=== PATIENT | female | born 1995 | race African-American/Black ===

== ENCOUNTER 2016-04-03 11:22 | Emergency (ER) | payer OTHER ==
[~2016-04-03] VITALS: Ht 170.2 cm; Wt 89.5 kg
[2016-04-03 11:25] VITALS: TEMP 36.4; Ht 170.2 cm; Wt 89.5 kg
[2016-04-03] MEDS ORDERED: SODIUM CHLORIDE 0.9% 1000ML 1,000 ML IV STA (12:23)
[2016-04-03] MEDS ORDERED: MoRPHine SULFATE 4 MG/ML 1 ML CARP\\VIAL IV STA ×2 (12:23→13:34)
[2016-04-03] MEDS ORDERED: ONDANSETRON INJ 2 MG/ML 2 ML VIAL IV STA (12:23)
[2016-04-03 12:49] LABS: BASO % 0.1 %; BASO ABS # 0.02 K/uL (0-0.2); COMPLETE YES; EOS % 0.1 %; HEMATOCRIT 37.6 % (37-47); IG% 0.2 %; LYMPH % 11.1 %; LYMPH ABS # 1.67 K/uL (1.2-3.4); MEAN CELL VOLUME 80.2 fL (80-100); MEAN CORPUSCULAR HEMOGLOBIN 26.7 pg (25-34); MEAN CORPUSCULAR HGB CONC 33.2 g/dl (32-36); MEAN PLATELET VOLUME 9.7 fL (7.4-10.4); MONO % 8.3 %; NEUT % 80.2 %; PLATELET COUNT 346 K/uL (130-400); RED BLOOD COUNT 4.69 M/uL (4.2-5.4); WHITE BLOOD COUNT 15.03 K/uL (4.8-10.8)
[2016-04-03] MEDS ORDERED: OPTIRAY 320 IV PRN (13:00)
--- NOTE | 2016-04-03 13:00 | DIAGNOSTIC IMAGING REPORT ---
ABDOMEN 2VIEW W/PA CHEST RTN CLINICAL HISTORY: generalized abd pain COMPARISON STUDY: No previous studies for comparison. FINDINGS: The erect chest reveals no evidence of free air. There is no evidence of focal pulmonary consolidation.] Erect and supine views of the abdomen reveal no abnormally dilated loops of large or small bowel. There are no transition zone to indicate bowel obstruction. IMPRESSION: No evidence of bowel obstruction. No evidence of free air. Electronically signed by: Donis Ellsworht M.D. 04/03/2016 12:59 PM Dictated Date/Time: 04/03/2016 12:59 PM
[2016-04-03 13:05] LABS: BUN/CREATININE RATIO 10.4 (10-20); CALCIUM 8.6 mg/dl (8.5-10.1); CREATININE 0.74 mg/dl (0.60-1.20); POTASSIUM 3.9 mmol/L (3.5-5.1)
[2016-04-03 13:10] LABS: URINE APPEARANCE CLEAR (CLEAR); URINE BILIRUBIN NEG (NEG); URINE COLOR YELLOW; URINE EPITHELIAL CELL AUTO >30 /lpf (0-5); URINE NITRITE NEG (NEG); URINE PH 7.5 (4.5-7.5); URINE SPECIFIC GRAVITY 1.005 (1.000-1.030); UROBILINOGEN NEG (NEG); ZZUR CULT IF INDIC CLEAN CATCH YES
[2016-04-03 13:17] LABS: MANUAL MICROSCOPIC REQUIRED? NO; REVIEW REQ? NO
[2016-04-03 13:21] LABS: ALB/GLOB RATIO 1.1 (0.9-2)
[2016-04-03 14:56] VITALS: BP 117/68; PULSE 73; O2SAT 100
--- NOTE | 2016-04-03 14:56 | DIAGNOSTIC IMAGING REPORT ---
CT OF THE ABDOMEN AND PELVIS WITH CONTRAST CLINICAL HISTORY: Abdominal pain and nausea. COMPARISON STUDY: The bowel series performed earlier today. TECHNIQUE: Following IV administration of 93 mL of Optiray-320, axial images of the abdomen and pelvis were obtained from the lung bases to the proximal femurs. Images were reviewed in the axial, sagittal, and coronal planes. IV contrast was administered without complication. Oral contrast was administered. CT DOSE: 519.57 mGy.cm FINDINGS: The liver, spleen, adrenal glands, kidneys and pancreas are normal. There is no peripancreatic or pericholecystic infiltration. There is no hydronephrosis. The caliber and wall thickness of small and large bowel are normal. The appendix is normal. A 1.9 cm rim-enhancing right ovarian lesion represents a corpus luteal cyst. There is no evidence for a bowel obstruction. There is no lymphadenopathy. Skeletal structures are unremarkable. IMPRESSION: 1. No acute process within the abdomen or pelvis. Normal appendix. 2. 1.9 cm right ovarian lesion suggestive of a corpus luteal cyst. Electronically signed by: Carlo Ha M.D. 04/03/2016 2:55 PM Dictated Date/Time: 04/03/2016 2:49 PM
[2016-04-03] MEDS ORDERED: ONDA4TAB10 SL (15:27)
[2016-04-03] MEDS ORDERED: SULF800T23 PO (15:27)
[2016-04-03] MEDS ORDERED: HYDR-5688 PO (15:27)
--- NOTE | 2016-04-03 15:29 | EMERGENCY ROOM VISIT NOTE ---
History First contact with patient: 12:06 Chief Complaint: ABDOMINAL PAIN Stated Complaint: STOMACH PAIN Nursing Triage Summary: Pt c/o "stomach pain all over" that started earlier today. States hx of food poisoning and it feels the same. n/d History of Present Illness The patient is a 20 year old female who presents to the Emergency Room with complaints of abdominal pain which began this morning. The patient reports that after waking up, she developed pain all over her abdomen which has been constant since then. She states that she has been nauseous, but has not vomited. She has had 3 episodes of diarrhea today. She rates her discomfort a 7/10. She states the pain is worse with walking or movement. She did not take any medication for her pain. She did not have any symptoms prior to today. She does report that she had food poisoning last year and this feels similar, but worse. She denies any urinary symptoms, vaginal bleeding/discharge, chance of or fevers. She denies history of abdominal surgery. Review of Systems A complete 10-point Review of Systems was discussed with the patient, with pertinent positives and negatives listed in the History of Present Illness. All remaining Review of Systems questions can be considered negative unless otherwise specified. Past Medical/Surgical History Medical Problems: (1) No known problems Social History Smoking Status: Never Smoker Alcohol Use: none Drug Use: none Marital Status: single Housing Status: lives with roommate Occupation Status: [employer] student Current/Historical Medications Scheduled Ondasetron Odt (Zofran Odt), 4 MG SL Q6H Sulfa/Trimethoprim (Bactrim Ds 800MG/160MG), 1 TAB PO BID Scheduled PRN Hydrocodone/Acetaminophen 5MG/325MG (Watson 5MG/325MG), 1-2 TABLET PO Q4H PRN for Pain Allergies Coded Allergies: No Known Allergies (Unverified , 04/03/16) Physical Exam Vital Signs Date Time Temp Pulse Resp B/P Pulse Ox O2 Delivery O2 Flow Rate FiO2 04/03/16 14:56 73 18 117/68 100 Room Air 04/03/16 13:25 72 18 134/85 99 Room Air 04/03/16 11:25 36.4 80 18 124/81 97 Room Air Pain Rating (0-10): 6.0 Physical Exam VITALS: Vitals are noted on the nurse's note and reviewed by myself. Vital signs stable. GENERAL: This is a 20-year-old female, in no acute distress, nondiaphoretic, well-developed well-nourished. SKIN: Capillary reflex less than 2 seconds. HEART: Regular rate and rhythm without murmurs gallops or rubs. LUNGS: Clear to auscultation bilaterally without wheezes, rales or rhonchi. ABDOMEN: Positive bowel sounds x 4. Soft, with moderate tenderness in the periumbilical region. No guarding or rebound tenderness. NEURO: Patient was alert and oriented to person place and time. Medical Decision & Procedures ER Provider Diagnostic Interpretation: ABDOMEN 2VIEW W/PA CHEST RTN FINDINGS: The erect chest reveals no evidence of free air. There is no evidence of focal pulmonary consolidation.] Erect and supine views of the abdomen reveal no abnormally dilated loops of large or small bowel. There are no transition zone to indicate bowel obstruction. IMPRESSION: No evidence of bowel obstruction. No evidence of free air. CT OF THE ABDOMEN AND PELVIS WITH CONTRAST FINDINGS: The liver, spleen, adrenal glands, kidneys and pancreas are normal. There is no peripancreatic or pericholecystic infiltration. There is no hydronephrosis. The caliber and wall thickness of small and large bowel are normal. The appendix is normal. A 1.9 cm rim-enhancing right ovarian lesion represents a corpus luteal cyst. There is no evidence for a bowel obstruction. There is no lymphadenopathy. Skeletal structures are unremarkable. IMPRESSION: 1. No acute process within the abdomen or pelvis. Normal appendix. 2. 1.9 cm right ovarian lesion suggestive of a corpus luteal cyst. Laboratory Results 04/03/16 12:20 Red Blood Count 4.69, Mean Corpuscular Volume 80.2, Mean Corpuscular Hemoglobin 26.7, Mean Corpuscular Hemoglobin Concent 33.2, Mean Platelet Volume 9.7, Neutrophils (%) (Auto) 80.2, Lymphocytes (%) (Auto) 11.1, Monocytes (%) (Auto) 8.3, Eosinophils (%) (Auto) 0.1, Basophils (%) (Auto) 0.1, Neutrophils # (Auto) 12.05, Lymphocytes # (Auto) 1.67, Monocytes # (Auto) 1.25, Eosinophils # (Auto) 0.01, Basophils # (Auto) 0.02 04/03/16 12:20 Test 04/03/16 12:20 04/03/16 12:53 White Blood Count 15.03 K/uL (4.8-10.8) Red Blood Count 4.69 M/uL (4.2-5.4) Hemoglobin 12.5 g/dL (12.0-16.0) Hematocrit 37.6 % (37-47) Mean Corpuscular Volume 80.2 fL (80-100) Mean Corpuscular Hemoglobin 26.7 pg (25-34) Mean Corpuscular Hemoglobin Concent 33.2 g/dl (32-36) Platelet Count 346 K/uL (130-400) Mean Platelet Volume 9.7 fL (7.4-10.4) Neutrophils (%) (Auto) 80.2 % Lymphocytes (%) (Auto) 11.1 % Monocytes (%) (Auto) 8.3 % Eosinophils (%) (Auto) 0.1 % Basophils (%) (Auto) 0.1 % Neutrophils # (Auto) 12.05 K/uL (1.4-6.5) Lymphocytes # (Auto) 1.67 K/uL (1.2-3.4) Monocytes # (Auto) 1.25 K/uL (0.11-0.59) Eosinophils # (Auto) 0.01 K/uL (0-0.5) Basophils # (Auto) 0.02 K/uL (0-0.2) RDW Standard Deviation 43.5 fL (36.4-46.3) RDW Coefficient of Variation 15.0 % (11.5-14.5) Immature Granulocyte % (Auto) 0.2 % Immature Granulocyte # (Auto) 0.03 K/uL (0.00-0.02) Anion Gap 10.0 mmol/L (3-11) Est Creatinine Clear Calc Drug Dose 139.3 ml/min Estimated GFR () 135.2 Estimated GFR (Non- 116.6 BUN/Creatinine Ratio 10.4 (10-20) Calcium Level 8.6 mg/dl (8.5-10.1) Total Bilirubin 0.3 mg/dl (0.2-1) Aspartate Amino Transf (AST/SGOT) 15 U/L (15-37) Alanine Aminotransferase (ALT/SGPT) 17 U/L (12-78) Alkaline Phosphatase 77 U/L (45-117) Total Protein 7.4 gm/dl (6.4-8.2) Albumin 3.9 gm/dl (3.4-5.0) Globulin 3.5 gm/dl (2.5-4.0) Albumin/Globulin Ratio 1.1 (0.9-2) Urine Color YELLOW Urine Appearance CLEAR (CLEAR) Urine pH 7.5 (4.5-7.5) Urine Specific [place] 1.005 (1.000-1.030) Urine Protein NEG (NEG) Urine Glucose (UA) NEG (NEG) Urine Ketones NEG (NEG) Urine Occult Blood NEG (NEG) Urine Nitrite NEG (NEG) Urine Bilirubin NEG (NEG) Urine Urobilinogen NEG (NEG) Urine Leukocyte Esterase SMALL (NEG) Urine WBC (Auto) 5-10 /hpf (0-5) Urine RBC (Auto) 0-4 /hpf (0-4) Urine Hyaline Casts (Auto) 1-5 /lpf (0-5) Urine Epithelial Cells (Auto) >30 /lpf (0-5) Urine Bacteria (Auto) 2+ (NEG) Urine Test NEG (NEG) Date/Time Source Procedure Growth Status 04/03/16 12:53 Urine , Clean Catch Urine Culture - Final THREE TYPES OF ORGANISMS PRESENT, ALL... Complete Medications Administered Medications (Trade) Dose Ordered Sig/Lasha Route Start Time Stop Time Status Last Admin Dose Admin Sodium Chloride (Nss 1000ml) 1,000 ml @ 999 mls/hr Q1H1M STAT IV 04/03/16 12:23 04/03/16 13:23 DC 04/03/16 12:32 999 MLS/HR Morphine Sulfate (MoRPHine SULFATE INJ) 4 mg NOW STAT IV 04/03/16 12:23 04/03/16 12:26 DC 04/03/16 12:32 4 MG Ondansetron HCl (Zofran Inj) 4 mg NOW STAT IV 04/03/16 12:23 04/03/16 12:26 DC 04/03/16 12:32 4 MG Morphine Sulfate (MoRPHine SULFATE INJ) 4 mg NOW STAT IV 04/03/16 13:34 04/03/16 13:35 DC 04/03/16 13:39 4 MG Medical Decision Differential diagnosis includes appendicitis, cholecystitis, gastroenteritis, colitis, ovarian cyst, ovarian torsion, among others. The patient was evaluated as above. Labs were drawn and IV access was obtained. Imaging studies were performed and read by radiology as above. The patient was medicated with 1 L normal saline solution, 4 mg morphine and 4 mg Zofran IV. The patient reported continued pain and was given an additional 4 mg morphine. The patient was reassessed multiple times during their stay in the emergency department and remained in stable condition. The patient is a 20-year-old female who presents today complaining of abdominal pain. She did have moderate tenderness in the periumbilical region. The patient required a total of 8 mg morphine. Labs revealed a leukocytosis of 15, 000. No concerning anemia or electrolyte abnormality. Urinalysis was suggestive of infection versus contamination. Culture pending. The patient will be placed on a short course of Bactrim given her abdominal pain and the possible urinary tract infection. Urine was negative. Due to the patient's significant discomfort a leukocytosis, a CT scan was performed to rule out appendicitis. CT was negative for any appendicitis or other acute infectious findings within the abdomen. The patient was informed of all findings. She was given a prescription of Zofran and Watson. Her symptoms are likely secondary to a gastroenteritis. She was instructed to follow-up with [facility] for a recheck in 1-2 days and return sooner for worsening symptoms. Based on the patient's presentation, lab results, and imaging studies, I feel the patient is stable for outpatient treatment. Discharge instructions were reviewed with the patient. The patient verbalized understanding of my assessment and treatment plan and was discharged home in good condition. [place] Drug Monitoring Program Search Results: patient reviewed within database, no issues identified Impression Primary Impression: Periumbilical abdominal pain Departure Information Dispostion Home / Self-Care Condition GOOD Prescriptions Ondasetron Odt (ZOFRAN ODT) 4 Mg Tab 4 MG SL Q6H for Nausea, #15 TAB Prov: Blanche Cottrell PA-C 04/03/16 Hydrocodone/Acetaminophen 5MG/325MG (Watson 5MG/325MG) Tab 1-2 TABLET PO Q4H Y for Pain, #12 TAB For Initial Treatment Prov: Blanche Cottrell PA-C 04/03/16 Sulfa/Trimethoprim (Bactrim Ds 800MG/160MG) Tab 1 TAB PO BID for 5 Days, #10 TAB Prov: Blanche Cottrell PA-C 04/03/16 Referrals No Doctor, Assigned (PCP) Patient Instructions My [facility] Additional Instructions You have been treated in the Emergency Department your Abdominal Pain. Laboratory results and imaging studies have ruled out any emergent causes for your abdominal pain which would warrant admission or surgery. You have been prescribed Watson to be used for pain control. This is a narcotic medication. You cannot drive or consume alcohol while on this medicine. This medicine should only be used for pain that cannot be controlled with over-the- counter pain medicines. You have been prescribed Zofran to be used for any nausea or vomiting. Take as prescribed. You were prescribed Bactrim to be taken twice daily. This is an antibiotic. All antibiotics have the potential to cause diarrhea. Stop this medication and contact a medical provider if you were to develop any significant adverse side effects including: wheezing, shortness of breath, passing out, vomiting, or a diffuse rash. Always take antibiotics as directed and COMPLETE the ENTIRE course regardless of the improvement of your symptoms. For pain control, you can use the following [id number] medicines (if >12 yo): - Regular strength (325mg/tab) Tylenol (acetaminophen) 2 tabs every 4-6 hours as needed. Do not exceed 12 tablets in a 24 hour period. Avoid taking more than 4 grams (4000 mg) of Tylenol per day. This includes any other sources of acetaminophen you may take on a regular basis. - Regular strength (200 mg/tab) Advil (ibuprofen) 1-2 tabs every 4-6 hours as needed. Do not exceed a dose of 3200 mg per day. Drink plenty of water and stay well hydrated. Follow-up with [facility] in 1-2 days for reevaluation. Return to the emergency department if your symptoms persist despite treatment plan outlined above or if the following symptoms occur: increased fevers, chills , worsening nausea/vomiting, blood in your stool or urine.
== END 2016-04-03 15:38 | disposition home or self-care (01) ==
LOC: C.EDB 11:23 → C.EDC 15:38
DX: R10.33 Periumbilical pain (principal)

== ENCOUNTER 2016-12-11 08:07 | Emergency (ER) | payer OTHER ==
[~2016-12-11] VITALS: Ht 170.2 cm; Wt 83.0 kg
[2016-12-11 08:15] VITALS: Ht 170.2 cm; Wt 83.0 kg
[2016-12-11] MEDS ORDERED: AMOX875T3 PO (09:05)
[2016-12-11] MEDS ORDERED: KETOROLAC TROMETHAMINE 30 MG/ML VIAL IV STA (09:12)
[2016-12-11] MEDS ORDERED: DEXAMETHASONE SOD INJ 4 MG/ML VIAL IV STA (09:12)
[2016-12-11] MEDS ORDERED: LACTATED RINGER'S 1000ML 1,000 ML IV ONE (09:15)
[2016-12-11] MEDS ORDERED: OPTIRAY 320 IV PRN (09:15)
[2016-12-11 09:36] LABS: MANUAL MICROSCOPIC REQUIRED? YES; URINE APPEARANCE SL CLOUDY (CLEAR); URINE BILIRUBIN NEG (NEG); URINE COLOR RED; URINE NITRITE NEG (NEG); URINE PH 8.5 (4.5-7.5); UROBILINOGEN NEG (NEG)
[2016-12-11 09:39] LABS: BASO % 0.1 %; BASO ABS # 0.02 K/uL (0-0.2); COMPLETE YES; EOS % 0.4 %; HEMATOCRIT 38.1 % (37-47); IG% 0.3 %; LYMPH % 12.3 %; LYMPH ABS # 1.66 K/uL (1.2-3.4); MEAN CELL VOLUME 83.7 fL (80-100); MEAN CORPUSCULAR HEMOGLOBIN 27.9 pg (25-34); MEAN CORPUSCULAR HGB CONC 33.3 g/dl (32-36); MEAN PLATELET VOLUME 10.1 fL (7.4-10.4); MONO % 9.7 %; NEUT % 77.2 %; PLATELET COUNT 317 K/uL (130-400); RED BLOOD COUNT 4.55 M/uL (4.2-5.4); WHITE BLOOD COUNT 13.54 K/uL (4.8-10.8)
[2016-12-11 09:46] LABS: REVIEW REQ? NO
[2016-12-11 09:47] LABS: SULFASALICYLIC ACID POS (NEG)
[2016-12-11 09:50] LABS: URINE RBC >30 /hpf (0-4)
[2016-12-11 09:51] LABS: URINE BACTERIA NEG (NEG)
--- NOTE | 2016-12-11 09:52 | DIAGNOSTIC IMAGING REPORT ---
CHEST 2 VIEWS ROUTINE CLINICAL HISTORY: cough, fever COMPARISON STUDY: 04/03/2016 FINDINGS: The cardiac and mediastinal contours are normal. There is no evidence of focal pulmonary consolidation. There is no evidence of failure. No pleural effusions are visualized.[ IMPRESSION: No active disease in the chest. Electronically signed by: Donis Ellsworth M.D. 12/11/2016 9:51 AM Dictated Date/Time: 12/11/2016 9:51 AM
[2016-12-11 09:53] LABS: PROTHROMBIN TIME (PATIENT) 10.6 SECONDS (9.0-12.0)
[2016-12-11 09:55] LABS: BUN/CREATININE RATIO 7.7 (10-20); CREATININE 0.71 mg/dl (0.60-1.20); POTASSIUM 3.8 mmol/L (3.5-5.1)
[2016-12-11 10:09] VITALS: TEMP 36.8
--- NOTE | 2016-12-11 10:34 | DIAGNOSTIC IMAGING REPORT ---
SINUSES-MAXILLOFACIAL WITH HISTORY: 21 years-old Female eval for facial sinus pain acute sore throat and fever with facial pain COMPARISON: None available TECHNIQUE: Multiple axial CT images of the paranasal sinuses and maxillofacial bones were obtained following the intravenous administration of 85 mL Optiray 320. A dose lowering technique was used consistent with the principals of PADMINI. FINDINGS: There is enlargement of the adenoid tonsils causing moderate narrowing of the nasopharynx. [place] and lingual tonsils appear normal without peritonsillar abscess. Parotid, some mandibular and sublingual glands appear unremarkable. Imaged vasculature of the neck appears unremarkable. No soft tissue abscess or focal collection identified. Orbits are symmetric. Mastoid air cells and middle ear cavities are clear. Moderate air-fluid level with mucosal thickening of the left maxillary sinus. Mild right maxillary, sphenoid and frontal sinus disease. Moderate left greater than right ethmoid sinus disease with secretions also present within the nasal turbinates. Polypoid mucosal thickening of the medial right maxillary wall is noted, 8 mm. No acute facial bone fracture or dislocation identified. No significant periodontal disease. Imaged cervical spine appears intact. IMPRESSION: 1. Moderate ethmoid and maxillary sinus disease with evidence of acute left maxillary sinusitis. 2. Enlargement of the adenoid tonsils causes moderate narrowing of the nasopharynx. No evidence of peritonsillar abscess or drainable fluid collection. The above report was generated using voice recognition software. It may contain grammatical, syntax or spelling errors. Electronically signed by: Garrett Norris M.D. 12/11/2016 10:32 AM Dictated Date/Time: 12/11/2016 10:28 AM
[2016-12-11] MEDS ORDERED: BUDE1SUS8 (11:09)
[2016-12-11 11:43] VITALS: BP 115/72; PULSE 84; O2SAT 98
--- NOTE | 2016-12-11 15:41 | EMERGENCY ROOM VISIT NOTE ---
ED Visit Note First contact with patient: 08:26 Chief Complaint: I'm having fevers, sore throat and face pain. History of Present Illness: Mr. Sebastian is a 21-year-old black female who ambulates into the ED complaining of throat pain, sinus pain and fevers. Historically patient reports she has a history of pneumonia and is status post tonsillectomy. Patient reports for the last week she has been having a productive cough; intermittently productive of bloody sputum, and sore throat. She was seen at a local urgent care center and reports she had a strep screen that was negative and was prescribed amoxicillin. She reports this is day 3 of her amoxicillin and she is not feeling any better and actually reports she is feeling worse. Currently she describes a deep achy sensation in her throat. She rates this discomfort 8/10. Her pain is nonradiating. Her pain worsens with swallowing. She has not identified any alleviating factors related to the pain. Associated with her pain she really also reports she is having left-sided facial pain. She describes this as a constant pressure sensation. She rates this discomfort 8/10. Her pain worsens when she leans forward. She has not identified any alleviating factors related to the pain. Associated with her symptoms she reports she feels like she has been having fevers but has not checked her temperature, she is nauseated but has not vomited , she has not been able to sleep for the last 2 days because of her discomfort, she reports she has had a decreased appetite and since her onset of symptoms had 2 episodes of left-sided epistaxis. She denies sweats, skin eruptions, skin color changes, dizziness, lightheadedness, visual changes, hearing changes, difficulty swallowing, voice changes, painful talking, drooling, neck pain/stiffness, shortness of breath, wheezing, chest pain, palpitations, orthopnea, dependent edema, previous clots, claudication, cramping, recent surgery/inactivity/extended travel, estrogen and tobacco use, abdominal pain, vomiting, posttussive vomiting, back/flank pain, urinary symptoms. Review of Systems: As noted above in history of present illness. All body systems were reviewed and found to be negative as noted above. Past Medical History: As noted above and unspecified stomach disorder. Current Medications: Amoxicillin. Allergies to Medications: Augmentin; she reports she had nausea vomiting but no true allergic symptoms.. Social History: Patient is currently employed; she feels safe in her home environment; she denies tobacco and alcohol use. Physical Examination: Vital Signs: Date Time Temp Pulse Resp B/P (MAP) Pulse Ox O2 Delivery O2 Flow Rate FiO2 12/11/16 11:43 84 20 115/72 98 12/11/16 10:09 36.8 84 111/74 100 12/11/16 08:15 37.1 103 18 124/73 96 Room Air GENERAL: 21-year-old female in moderate distress due to pain, nontoxic-appearing , afebrile and hemodynamically stable. Patient presents anxious and tearful. NEUROLOGICAL: Awake, alert and oriented to person, place and time. Answering questions appropriately and following commands. Normal gait. Good hand eye coordination. No focal motor sensory deficits. SKIN: Warm, dry and pink. No soft tissue eruptions or trauma noted. HEENT: Atraumatic and normocephalic. Moderate tenderness over the maxillary and frontal sinus area without erythema or warmth. External ears are nontender. Auditory canals are pink and patent. Tympanic membranes are pearly regan with normal light reflex. PERRLA. Sclera white and conjunctiva pink. No drainage from naris but audible congestion. Oral cavity moist and pink. Airway is patent. Uvula was midline and no abscesses are seen. Pharynx is nonerythematous or edematous. No exudative material in the pharyngeal area. Speech normal. No lymphadenopathy. Trachea midline. No jugular venous distention. No laryngeal tenderness. BACK: No tenderness over the bony spine. Full range of motion of the cervical spine. No nuchal rigidity. No CVA tenderness. THORAX: Lungs sounds are clear to auscultation and equal bilaterally with symmetrical chest wall. No wheezing, rales or rhonchi. No crepitus, tenderness , subcutaneous air or deformities noted. HEART: Regular rate and rhythm. No gallops, rubs or murmurs are appreciated. ABDOMEN: Flat, soft and nontender. Positive bowel sounds in all quadrants. No guarding, rigidity or organomegaly. EXTREMITIES: Moves all extremities well on command and with purpose. All distal neurovascular statuses are intact and equal bilaterally. No calf tenderness or cords. ED Course: Patient is assessed as noted above. Patient's medication list was reviewed. Laboratory Testing: Test 12/11/16 09:15 Range/Units White Blood Count 13.54 4.8-10.8 K/uL Red Blood Count 4.55 4.2-5.4 M/uL Hemoglobin 12.7 12.0-16.0 g/dL Hematocrit 38.1 37-47 % Mean Corpuscular Volume 83.7 80-100 fL Mean Corpuscular Hemoglobin 27.9 25-34 pg Mean Corpuscular Hemoglobin Concent 33.3 32-36 g/dl Platelet Count 317 130-400 K/uL Mean Platelet Volume 10.1 7.4-10.4 fL Neutrophils (%) (Auto) 77.2 % Lymphocytes (%) (Auto) 12.3 % Monocytes (%) (Auto) 9.7 % Eosinophils (%) (Auto) 0.4 % Basophils (%) (Auto) 0.1 % Neutrophils # (Auto) 10.45 1.4-6.5 K/uL Lymphocytes # (Auto) 1.66 1.2-3.4 K/uL Monocytes # (Auto) 1.32 0.11-0.59 K/uL Eosinophils # (Auto) 0.05 0-0.5 K/uL Basophils # (Auto) 0.02 0-0.2 K/uL RDW Standard Deviation 44.6 36.4-46.3 fL RDW Coefficient of Variation 14.6 11.5-14.5 % Immature Granulocyte % (Auto) 0.3 % Immature Granulocyte # (Auto) 0.04 0.00-0.02 K/uL Prothrombin Time 10.6 9.0-12.0 SECONDS Prothromb Time International Ratio 1.0 0.9-1.1 Activated Partial Thromboplast Time 26.2 21.0-31.0 SECONDS Partial Thromboplastin Ratio 1.0 D-Dimer 410 0-500 ug/L FEU Urine Color RED Urine Appearance SL CLOUDY CLEAR Urine pH 8.5 4.5-7.5 Urine Specific [place] 1.020 1.000-1.030 Urine Protein 1+ NEG Urine Glucose (UA) NEG NEG Urine Ketones NEG NEG Urine Occult Blood 3+ NEG Urine Nitrite NEG NEG Urine Bilirubin NEG NEG Urine Urobilinogen NEG NEG Urine Leukocyte Esterase NEG NEG Urine RBC >30 0-4 /hpf Urine WBC 5-10 0-5 /hpf Urine Epithelial Cells 5-10 0-5 /lpf Urine Bacteria NEG NEG Sodium Level 139 136-145 mmol/L Potassium Level 3.8 3.5-5.1 mmol/L Chloride Level 107 98-107 mmol/L Carbon Dioxide Level 23 21-32 mmol/L Anion Gap 9.0 3-11 mmol/L Blood Urea Nitrogen 6 7-18 mg/dl Creatinine 0.71 0.60-1.20 mg/dl Est Creatinine Clear Calc Drug Dose 138.8 ml/min Estimated GFR () 141.1 Estimated GFR (Non- 121.8 BUN/Creatinine Ratio 7.7 10-20 Random Glucose 88 70-99 mg/dl Calcium Level 9.0 8.5-10.1 mg/dl Monoscreen NEG NEG Chest X-Rays: Were read by myself and the radiologist showing no acute infiltrates, effusions or pneumothorax. Normal heart silhouette and bony anatomy. Sinus CT: Was reviewed by myself and read by the radiologist showing moderate ethmoid and maxillary sinus disease with evidence of acute left-sided maxillary sinusitis. Enlargement of the head and no tissues causing moderate narrowing of the nasopharynx with no evidence of peritonsillar abscess or drainable fluid collection. Patient was hydrated with normal saline, she received 10 mg of Decadron IV, 30 mg of Toradol IV for her symptoms. Patient was reassessed multiple times during her stay in the emergency department. Patient's case was reviewed with Dr. Parker; we agreed on diagnostic approach, treatment, disposition and plan. Patient is educated about today's findings and instructed on her treatment plan ; she verbalized understanding and agreement with this plan. Clinical Impression: Acute left-sided maxillary sinusitis. Decision-Making: Initially my differential diagnosis I considered peritonsillar abscess, sinusitis, pulmonary embolism, pneumonia, adenoiditis and other causes. Disposition: Patient discharged home in stable condition; prior to departure she was reassessed and subjectively reported she was feeling much better and rated her overall discomfort 4/10. Plan: Patient was encouraged to continue her antibiotic until completed. Patient was prescribed Rhinocort one spray in each nostril 2 times a day for 5 days. Patient was encouraged to use OTC decongestant like pseudoephedrine per Patient was encouraged to alternate ibuprofen and acetaminophen every 3 hours for pain or fevers. Patient was encouraged to stay well-hydrated with increased clear fluids. Patient was encouraged to follow-up at [facility] for recheck in 2-3 days. Patient was encouraged return ED for worsening symptoms, uncontrolled fevers, worsening bloody nose or coughing up blood, worsening pain or any new/ concerning symptoms.
== END 2016-12-11 11:44 | disposition home or self-care (01) ==
LOC: C.EDB 08:08
DX: J01.00 Acute maxillary sinusitis, unspecified (principal); J01.20 Acute ethmoidal sinusitis, unspecified; J02.9 Acute pharyngitis, unspecified; R50.9 Fever, unspecified